=== PATIENT | female | born 1975 | race Two or more races ===

== ENCOUNTER 2020-10-20 10:15 | Outpatient (REF) | payer OTHER, SELFPAY | END 2020-10-20 10:16 | disposition home or self-care (01) | LOC: HO.LAB 10:15 | PROVIDERS: Visit Provider Internal Medicine | DX: Z20.822 Contact with and (suspected) exposure to COVID-19 (principal) | CPT/HCPCS: 36415; C9803; U0003; U0005 ==

== ENCOUNTER 2020-12-01 13:16 | Outpatient (REF) | payer OTHER, SELFPAY | END 2020-12-01 13:17 | disposition home or self-care (01) | LOC: HO.LAB 13:16 | PROVIDERS: Visit Provider Internal Medicine | DX: Z20.822 Contact with and (suspected) exposure to COVID-19 (principal) | CPT/HCPCS: 36415; C9803; U0003; U0005 ==